=== PATIENT | male | born 1970 | race Native Hawaiian/Other Pacific Islander ===

== ENCOUNTER 2018-12-09 02:03 | Outpatient (CLI) | payer OTHER | END 2018-12-09 02:08 | disposition short-term general hospital (02) | LOC: AMB 02:03 | DX: T78.49XA Other allergy, initial encounter (principal); L50.0 Allergic urticaria | CPT/HCPCS: A0425; A0427 ==

== ENCOUNTER 2018-12-09 02:16 | Emergency (ER) | payer OTHER ==
[~2018-12-09] VITALS: Ht 195.6 cm; Wt 72.6 kg
[2018-12-09 03:47] VITALS: BP 139/72; TEMP 98.4
== END 2018-12-09 03:48 | disposition home or self-care (01) ==
LOC: ED 02:16
DX: L50.0 Allergic urticaria (principal); Z77.098 Contact with and (suspected) exposure to other hazardous, chiefly nonmedicinal, chemicals; Y92.481 Parking lot as the place of occurrence of the external cause
CPT/HCPCS: 96374; 96375; 99284; J2780; J2930